=== PATIENT | female | born 1995 | race Caucasian/White ===

== ENCOUNTER 2017-09-11 23:31 | Emergency (ER) | payer SELFPAY, OTHER ==
[2017-09-12] MEDS: ACETAMINOPHEN 325 MG TAB PO (02:15)
== END 2017-09-12 04:26 | disposition home or self-care (01) ==
LOC: FTE 23:31
DX: S00.81XA Abrasion of other part of head, initial encounter (principal); S00.83XA Contusion of other part of head, initial encounter; R40.2412 Glasgow coma scale score 13-15, at arrival to emergency department; V49.50XA Passenger injured in collision with unspecified motor vehicles in traffic accident, initial encounter
CPT/HCPCS: 99283-25